=== PATIENT | female | born 1945 | race Caucasian/White ===

== ENCOUNTER → 2024-11-21 15:22 | Outpatient (REF) | payer OTHER, SELFPAY | LOC: RAD 15:22 | PROVIDERS: ATTENDING PHYSICIAN Internal Medicine Rheumatology; FAMILY PHYSICIAN Family Medicine | DX: M10.9 Gout, unspecified (principal); M19.071 Primary osteoarthritis, right ankle and foot; M19.90 Unspecified osteoarthritis, unspecified site | CPT/HCPCS: 73630 ==